=== PATIENT | female | born 1985 | race Caucasian/White ===

== ENCOUNTER 2018-03-13 09:34 | Emergency (ER) ==
[2018-03-13 09:39] VITALS: BP 134/84; TEMP 98.2; BMI 25.8
[2018-03-13] MEDS ORDERED: TORADOL IM STA (10:09)
--- NOTE | 2018-03-13 11:30 | CT ---
EXAM: CT of the abdomen pelvis without contrast History: Right-sided flank pain. Technique: Multiplanar CT images through the abdomen pelvis were obtained without the administration of IV contrast Findings: Lung bases are free of consolidation. No acute osseous abnormalities. No discrete gallstones identified by CT. No focal liver or splenic lesions. No renal stones and no hydronephrosis. The appendix is normal. No peripancreatic inflammation. Adrenal glands are unremar kable. No dilated loops of bowel. Small fat-containing umbilical hernia. No bladder wall thickening. Enlarged right ovary with multiple small follicles. No free air and no ascites. Impression: Enlarged right ovary with multiple small follicles can be seen with ovarian torsion. Re commend further evaluation with pelvic ultrasound. Critical results communicated to Dr. Miguel at 11:26 a.m. 03/23/2080
--- NOTE | 2018-03-13 12:23 | US ---
EXAM: Ultrasound Transvaginal Non-obstetrical. HISTORY: Pelvic pain. COMPARISON: CT earlier the same day. TECHNIQUE: Garay scale and color doppler images with transvaginal probe. FINDINGS: The uterus measures 6.6 x 4.1 x 5.2 cm and appears normal. Endometrial stripe measures 0. 5 cm. The right ovary measures 7.3 x 5.2 x 3.8 cm and contains multiple follicles. Somewhat ill-defined hy perechoic 2.8 x 2.7 x 2 cm focus noted within the right ovary. There is vascular flow present in the right ovary with venous and arterial wave forms noted within the central right ovary. The left ovar y measures 3.7 x 2.5 x 2 cm and contains multiple small follicles. Vascular flow present in the left ovary. Small amount of free pelvic fluid noted. IMPRESSION: 1. Enlarged right ovary without evidence for ovarian torsion. Indeterminate 2.8 cm hypoechoic focus within the right ovary noted. Consider pelvic MRI for further characterization. At least short-term follow-up ultrasound recommended for reassessment. 2. Small amount of free pelvic fluid.
--- NOTE | 2018-03-13 12:41 | ED.PDOC ---
General ED Provider: Dr. KALIE WEATHERS Chief Complaint: Back Pain Stated Complaint: back pain Time Seen by Physician: 09:40 (seen with nurse and family present at all times ) Mode of Arrival: Walk-In Information Source: Patient Exam Limitations: No limitations Primary Care Provider: EDI THURSTON Nursing and Triage Documentation Reviewed and Agree: Yes Does patient meet sepsis criteria?: No If yes, has appropriate treatment been initiated?: No System Inflammatory Response Syndrome: Not Applicable Sepsis Protocol: For patient's 13 years and over: Temp is 96.8 and below OR 101 and greater Pulse >90 BPM Resp >20/minute Acutely Altered Mental Status Are patient's symptoms suggestive of a new infection, such as: -Pneumonia -Skin, Soft Tissue -Endocarditis -UTI -Bone, Joint Infection -Implantable Device -Acute Abdominal Infection -Wound Infection -Meningitis -Blood Stream Catheter Infection -Unknown Musculoskeletal Complaint Exam - Back Pain Complaint/Exam Mechanism of Injury: Reports: No known trauma, Other (right flank) Onset/Duration: today Symptoms Are: Still present Timing: Constant Initial Severity: Moderate Current Severity: Mild Location: Reports: Discrete Character: Reports: Aching Aggravating: Reports: None Alleviating: Reports: None Associated Signs and Symptoms: Denies: Swelling, Redness, Bruising, Fever, Weakness, Numbness, Tingling, Abdominal pain, Flank pain, Bladder incontinence, Bowel incontinence, Weight loss, Pain with weight bearing Related History: Reports: Similar episode TAD Risk Factors: Reports: None AAA Risk Factors: Reports: None Cauda Equina Risk Factors: Reports: None Epidural Abcess Risk Factors: Reports: None Related Surgical History: Reports: None Focal Tenderness: No Paraspinal Muscle Tenderness: No Paraspinal Muscle Spasm: No Scoliosis: No Lordosis: No Kyphosis: No Focal Weakness: Present: None Focal Sensory Loss: Present: None Gait: Present: Normal Differential Diagnoses: Renal Colic, Strain, Sprain Review of Systems - Review Of Systems Constitutional: Reports: No symptoms Eyes: Reports: No symptoms Ears, Nose, Mouth, Throat: Reports: No symptoms Respiratory: Reports: No symptoms Cardiac: Reports: No symptoms GI: Reports: Abdominal pain : Reports: No symptoms Musculoskeletal: Reports: Back pain Skin: Reports: No symptoms Neurological: Reports: No symptoms Endocrine: Reports: No symptoms Hematologic/Lymphatic: Reports: No symptoms All Other Systems: Reviewed and Negative Past Medical History - Past Medical History Previously Healthy: Yes Endocrine: Reports: None Cardiovascular: Reports: None Respiratory: Reports: None Hematological: Reports: None Gastrointestinal: Reports: None Genitourinary: Reports: None Neuro/Psych: Reports: None Musculoskeletal: Reports: None Cancer: Reports: None Last Menstrual Period: last week - Surgical History General Surgical History: Reports: Tubal ligation (2 DAYS AGO-LAPAROSCOPIC TWO PORT SITES) - Family History Family History: Reports: Unknown - Social History Smoking Status: Current some day smoker Hx Substance Use: No Alcohol Screening: Occasionally Physical Exam - Physical Exam Appearance: Well-appearing, No pain distress, Well-nourished Eyes: GURPREET, EOMI, Conjunctiva clear ENT: Ears normal, Nose normal, Oropharynx normal Respiratory: Airway patent, Breath sounds clear, Breath sounds equal, Respirations nonlabored Cardiovascular: RRR, Pulses normal, No rub, No murmur GI/: Soft, Nontender, No masses, Bowel sounds normal, No Organomegaly Musculoskeletal: Normal strength, ROM intact, No edema, No calf tenderness Skin: Warm, Dry, Normal color Neurological: Sensation intact, Motor intact, Reflexes intact, Cranial nerves intact, Alert, Oriented Psychiatric: Affect appropriate, Mood appropriate Interpretation - Radiology Interpretation Radiology Interpretation By: Radiologist Radiology Results: Positive (right ovary mass) Re-Evaluation - Re-Evaluation Time of Re-Evaluation: 12:41 (gaurav mackey present report copy given and discussed .ovary mass was dis cussed gaurav young RN was present) Critical Care Note - Critical Care Note Total Time (mins): 0 Course - Course Hematology/Chemistry: 03/13/18 10:20 03/13/18 10:20 Orders, Labs, Meds: Lab Review 03/13/18 03/13/18 03/13/18 10:20 10:20 10:20 WBC 10.83 H RBC 4.87 Hgb 13.8 Hct 41.2 MCV 84.6 MCH 28.3 MCHC 33.5 RDW Coeff of Dhruv 13.3 Plt Count 294 Immature Gran % (Auto) 0.4 Neut % (Auto) 66.9 Lymph % (Auto) 23.3 [place] % (Auto) 8.6 Eos % (Auto) 0.4 Baso % (Auto) 0.4 Immature Gran # (Auto) 0.0 Neut # (Auto) 7.3 H Lymph # (Auto) 2.5 [place] # (Auto) 0.9 Eos # (Auto) 0.0 Baso # (Auto) 0.0 Sodium 138.6 Potassium 4.07 Chloride 106.3 Carbon Dioxide 26.5 Anion Gap 9.87 BUN 9.9 Creatinine 0.74 Estimated GFR (MDRD) 90.00 BUN/Creatinine Ratio 13.37 Glucose 100.1 Calcium 9.19 Total Bilirubin 0.80 AST 24.5 ALT 18.7 Alkaline Phosphatase 50.9 Total Protein 7.41 Albumin 4.27 Globulin 3.14 Albumin/Globulin Ratio 1.35 Serum , Qual Negative Orders Category Date Time Status CBC W/ AUTO DIFF Stat LAB 03/13/18 10:20 Completed COMPREHENSIVE METABOLIC PANEL Stat LAB 03/13/18 10:20 Completed SERUM TEST [SERUM ] Stat LAB 03/13/18 10:20 Completed URINALYSIS C & S IF INDICATED Stat LAB 03/13/18 10:08 Uncollected Ketorolac Tromethamine [Toradol] MEDS 03/13/18 10:09 Discontinued 60 mg IM ONCE STA CT ABD/PEL WO RENAL STONE PROT Stat RADS 03/13/18 10:08 Completed ULTRASOUND PELVIS [place] VAGINAL/NONOB [U/S PELVIS [place] RADS 03/13/18 11:37 Completed VAGINAL/NON OB] Stat Medications Discontinued Medications Generic Name Dose Route Start Last Admin Trade Name Charley PRN Reason Stop Dose Admin Ketorolac Tromethamine 60 mg 03/13/18 10:09 03/13/18 10:20 Toradol IM 03/13/18 10:10 60 mg ONCE STA Administration Vital Signs: Temp Pulse Resp BP Pulse Ox 03/13/18 09:35 98.2 F 61 18 134/84 98 Departure - Departure Time of Disposition: 12:42 Disposition: HOME SELF-CARE Discharge Problem: Mass of right ovary, Backache Instructions: Abdominal Pain (ED) Condition: Good Pt referred to PMD for follow-up: Yes IPMP verified?: No Additional Instructions: Please call your Family Physician as soon as possible to schedule a follow-up appointment. Allergies/Adverse Reactions: Allergies No Known Allergies Allergy (Verified 03/13/18 09:39) Home Medications: Ambulatory Orders 1 [No Reported Medications] 09/24/15
== END 2018-03-13 13:18 | disposition home or self-care (01) ==
LOC: ED 09:34
DX: N83.9 Noninflammatory disorder of ovary, fallopian tube and broad ligament, unspecified (principal); M54.9 Dorsalgia, unspecified; F17.210 Nicotine dependence, cigarettes, uncomplicated
CPT/HCPCS: 36415; 74176; 80053; 84703; 85025; 96372; 99283

== ENCOUNTER 2018-03-13 22:19 | Emergency (ER) ==
[2018-03-13 22:19] VITALS: BMI 25.8
[2018-03-13 22:25] VITALS: BP 129/62; TEMP 98.2
[2018-03-13] MEDS ORDERED: SODIUM CHLORIDE 1,000 ML IV STA (22:28)
[2018-03-13] MEDS ORDERED: TORADOL IVP STA (22:28)
[2018-03-13] MEDS ORDERED: ZOFRAN 4 MG/2 ML IVP STA (22:29)
[2018-03-13] MEDS ORDERED: DILAUDID 0.5 MG/0.5 ML SYRINGE IVP STA (22:29)
--- NOTE | 2018-03-14 00:35 | CT ---
Exam: CT of the abdomen and pelvis without and with contrast History: Right lower quadrant pain Technique: [address] of the abdomen and pelvis pre and post intravenous contrast FINDINGS: The lung bases are clear. Focal fatty changes of the left hepatic lobe. The liver appears normal otherwise. The adrenals, pancreas and spleen are unremarkable. The stomach and hiatus are un remarkable.The gallbladder appears normal. Kidneys and proximal collecting system are unremarkable. T he appendix is normal. Bowel loops demonstrate normal caliber. No inflamatory change seen in the mese ntery or retroperitoneum. Vascular structures appear normal. Small pelvic ascites. Enlarged right ovary measuring up to 6.2 x 4.0 cm. No pelvic fat inflammation. Normal pelvic bowel loops. No acute findings of the skeleton. Impression: 1. No inflammatory process, bowel or urinary obstruction is seen. No change from earlier same day at 1104 hours. 2. Enlarged right ovary. Follow-up ultrasound has already been recommended.
[2018-03-14] MEDS ORDERED: ZOFRAN 4 MG/2 ML IVP STA (00:42)
--- NOTE | 2018-03-14 00:42 | ED.PDOC ---
General ED Provider: Dr. JARON BRYANT-ER Chief Complaint: Abdominal Pain Stated Complaint: was seen today for same problem--pain is back Time Seen by Physician: 22:20 Mode of Arrival: Walk-In Information Source: Patient Exam Limitations: No limitations Primary Care Provider: EDI THURSTON Nursing and Triage Documentation Reviewed and Agree: Yes Does patient meet sepsis criteria?: No System Inflammatory Response Syndrome: Not Applicable Sepsis Protocol: For patient's 13 years and over: Temp is 96.8 and below OR 101 and greater Pulse >90 BPM Resp >20/minute Acutely Altered Mental Status Are patient's symptoms suggestive of a new infection, such as: -Pneumonia -Skin, Soft Tissue -Endocarditis -UTI -Bone, Joint Infection -Implantable Device -Acute Abdominal Infection -Wound Infection -Meningitis -Blood Stream Catheter Infection -Unknown GI Complaint Exam - Abdominal Pain Complaint/Exam Onset: Gradual Duration: several hours Symptoms Are: Still present Timing: Constant Initial Severity: Mild Current Severity: Mild Location of Pain: RUQ, RLQ Radiates To: Reports: Back, Flank Character: Reports: Dull, Aching Aggravating: Reports: None Associated Signs and Symptoms: Reports: Back pain, Nausea, Vomiting 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 History: Reports: Ovarian cyst Patient Rh Status: Unknown Abdominal Findings: Present: None Differential Diagnoses: Renal Colic, Ureteral Stone, UTI Review of Systems - Review Of Systems Constitutional: Reports: No symptoms Eyes: Reports: No symptoms Ears, Nose, Mouth, Throat: Reports: No symptoms Respiratory: Reports: No symptoms Cardiac: Reports: No symptoms GI: Reports: Abdominal pain, Nausea, Vomiting : Reports: No symptoms Musculoskeletal: Reports: No symptoms Skin: Reports: No symptoms Neurological: Reports: No symptoms Endocrine: Reports: No symptoms Hematologic/Lymphatic: Reports: No symptoms All Other Systems: Reviewed and Negative Past Medical History - Past Medical History Previously Healthy: Yes Endocrine: Reports: None Cardiovascular: Reports: None Respiratory: Reports: None Hematological: Reports: None Gastrointestinal: Reports: None Genitourinary: Reports: None Neuro/Psych: Reports: None Musculoskeletal: Reports: None Cancer: Reports: None Last Menstrual Period: [id number] - Surgical History General Surgical History: Reports: Tubal ligation (2 DAYS AGO-LAPAROSCOPIC TWO PORT SITES) - Family History Family History: Reports: Unknown - Social History Smoking Status: Current some day smoker Hx Substance Use: No Alcohol Screening: Occasionally - Immunizations Tetanus Shot up to Date: Yes Physical Exam - Physical Exam Appearance: Well-appearing Pain Distress: Moderate Eyes: GURPREET, EOMI, Conjunctiva clear ENT: Ears normal, Nose normal, Oropharynx normal Respiratory: Airway patent Cardiovascular: RRR, Pulses normal, No rub, No murmur GI/: Soft, Nontender, No masses, Bowel sounds normal, No Organomegaly Musculoskeletal: Normal strength, ROM intact, No edema, No calf tenderness Skin: Warm, Dry, Normal color Neurological: Sensation intact Psychiatric: Affect appropriate, Mood appropriate Interpretation - Radiology Interpretation Radiology Interpretation By: Radiologist Radiology Results: Positive Exam Interpreted: CT Scan (enlarged right ovary--see u/s from today) Re-Evaluation - Re-Evaluation Time of Re-Evaluation: 01:19 Status: Improved Vital Signs Stable: Yes Pain Level: 0 Appearance: NAD Lungs: Clear Skin: Warm and Dry Neuro: Alert and Oriented X3 CV: RRR Critical Care Note - Critical Care Note Total Time (mins): 0 Course - Course Hematology/Chemistry: 03/13/18 22:37 03/13/18 22:37 Orders, Labs, Meds: Lab Review 03/13/18 03/13/18 03/13/18 22:37 22:37 22:37 WBC 16.46 H D RBC 5.01 Hgb 14.1 Hct 41.6 MCV 83.0 MCH 28.1 MCHC 33.9 RDW Coeff of Dhruv 13.2 Plt Count 354 Immature Gran % (Auto) 0.5 Neut % (Auto) 74.8 Lymph % (Auto) 16.2 [place] % (Auto) 7.7 Eos % (Auto) 0.4 Baso % (Auto) 0.4 Immature Gran # (Auto) 0.1 Neut # (Auto) 12.3 H Lymph # (Auto) 2.7 [place] # (Auto) 1.3 Eos # (Auto) 0.1 Baso # (Auto) 0.1 ESR 2 Sodium 138.8 Potassium 3.53 Chloride 105.8 Carbon Dioxide 19.5 L D Anion Gap 17.03 BUN 13.2 Creatinine 0.92 Estimated GFR (MDRD) 70.00 BUN/Creatinine Ratio 14.34 Glucose 142.3 H Calcium 9.65 Total Bilirubin 0.89 AST 25.4 ALT 22.8 Alkaline Phosphatase 59.8 Total Protein 7.86 Albumin 4.63 Globulin 3.23 Albumin/Globulin Ratio 1.43 Amylase 153.0 H Lipase 150.2 Serum , Qual Negative Urine Color Urine Clarity Urine pH Ur Specific [place] Urine Protein Urine Glucose (UA) Urine Ketones Urine Blood Urine Nitrite Urine Bilirubin Urine Urobilinogen Ur Leukocyte Esterase Ur Squamous Epith Cells 03/14/18 00:35 WBC RBC Hgb Hct MCV MCH MCHC RDW Coeff of Dhruv Plt Count Immature Gran % (Auto) Neut % (Auto) Lymph % (Auto) [place] % (Auto) Eos % (Auto) Baso % (Auto) Immature Gran # (Auto) Neut # (Auto) Lymph # (Auto) [place] # (Auto) Eos # (Auto) Baso # (Auto) ESR Sodium Potassium Chloride Carbon Dioxide Anion Gap BUN Creatinine Estimated GFR (MDRD) BUN/Creatinine Ratio Glucose Calcium Total Bilirubin AST ALT Alkaline Phosphatase Total Protein Albumin Globulin Albumin/Globulin Ratio Amylase Lipase Serum , Qual Urine Color Yellow Urine Clarity Clear Urine pH 6.5 Ur Specific [place] 1.010 Urine Protein 1+ Urine Glucose (UA) Negative Urine Ketones 2+ Urine Blood Trace-intact Urine Nitrite Negative Urine Bilirubin Negative Urine Urobilinogen 0.2 Ur Leukocyte Esterase Negative Ur Squamous Epith Cells Pending Orders Category Date Time Status NPO REMINDER: IMAGING ONCE CARE 03/13/18 22:29 Completed IV [ED IV/MEDIPORT/POWERPORT] .ONCE EMERGENCY 03/13/18 22:28 Active AMYLASE Stat LAB 03/13/18 22:37 Completed CBC W/ AUTO DIFF Stat LAB 03/13/18 22:37 Completed COMPREHENSIVE METABOLIC PANEL Stat LAB 03/13/18 22:37 Completed ESR Stat LAB 03/13/18 22:37 Completed LIPASE Stat LAB 03/13/18 22:37 Completed SERUM Stat LAB 03/13/18 22:37 Completed URINALYSIS C & S IF INDICATED Stat LAB 03/13/18 22:28 Results 0.9 % Sodium Chloride [Saline Flush] MEDS 03/13/18 22:28 Ordered 1 syr IVF PRN PRN Hydromorphone HCl [Dilaudid 0.5 mg/0.5 ml Syringe] MEDS 03/13/18 22:29 Discontinued 1 mg IVP ONCE STA Ketorolac Tromethamine [Toradol] MEDS 03/13/18 22:28 Discontinued 30 mg IVP ONCE STA Ondansetron HCl/Pf [Zofran 4 mg/2 ml] MEDS 03/13/18 22:29 Discontinued 4 mg IVP ONCE STA Ondansetron HCl/Pf [Zofran 4 mg/2 ml] MEDS 03/14/18 00:42 Discontinued 4 mg IVP ONCE STA Sodium Chloride 0.9% [Sodium Chloride] 1,000 ml MEDS 03/13/18 22:28 Active IV 100 mls/hr CT ABDOMEN/PELVIS W/WO CONTRAS Stat RADS 03/13/18 22:29 Completed Medications Generic Name Dose Route Start Last Admin Trade Name Freq PRN Reason Stop Dose Admin Sodium Chloride 1,000 mls @ 100 mls/hr 03/13/18 22:28 03/13/18 23:15 Sodium Chloride IV 03/14/18 08:27 100 mls/hr .Q10H STA Administration Sodium Chloride 1 syr 03/13/18 22:28 Saline Flush IVF PRN PRN To flush IV Discontinued Medications Generic Name Dose Route Start Last Admin Trade Name Freq PRN Reason Stop Dose Admin Hydromorphone HCl 1 mg 03/13/18 22:29 03/13/18 23:15 Dilaudid 0.5 Mg/0.5 Ml Syringe IVP 03/13/18 22:30 1 mg ONCE STA Administration Ketorolac Tromethamine 30 mg 03/13/18 22:28 03/13/18 23:15 Toradol IVP 03/13/18 22:29 30 mg ONCE STA Administration Ondansetron HCl 4 mg 03/13/18 22:29 03/13/18 23:15 Zofran 4 Mg/2 Ml IVP 03/13/18 22:30 4 mg ONCE STA Administration Ondansetron HCl 4 mg 03/14/18 00:42 03/14/18 00:54 Zofran 4 Mg/2 Ml IVP 03/14/18 00:43 4 mg ONCE STA Administration Vital Signs: Temp Pulse Resp BP Pulse Ox 03/13/18 22:19 98.2 F 62 15 129/62 100 Departure - Departure Time of Disposition: 01:19 Disposition: HOME SELF-CARE Discharge Problem: Ovarian cyst Qualifiers: Laterality: right Qualified Code(s): N83.201 - Unspecified ovarian cyst, right side Instructions: Ovarian Cyst (ED) Condition: Good Pt referred to PMD for follow-up: No IPMP verified?: Yes Additional Instructions: toradol 10mg qid prn pain #15--f/u with pediatric orthodontist tomorrow Allergies/Adverse Reactions: Allergies No Known Allergies Allergy (Verified 03/13/18 09:39) Home Medications: Ambulatory Orders Hydrocodone/Acetaminophen [[place] 10-325 Tablet] 1 each PO Q8HR #14 tablet Disposition Discussed With: Patient, Family
== END 2018-03-14 01:30 | disposition home or self-care (01) ==
LOC: ED 22:19
DX: N83.201 Unspecified ovarian cyst, right side (principal); R11.2 Nausea with vomiting, unspecified; F17.210 Nicotine dependence, cigarettes, uncomplicated; N83.9 Noninflammatory disorder of ovary, fallopian tube and broad ligament, unspecified; M54.9 Dorsalgia, unspecified
CPT/HCPCS: 36415; 74176; 80053; 81001; 82150; 83690; 84703; 85025; 85651; 96360; 96361; 96372; 96374; 96375; 99283; 99284